=== PATIENT | male | born 1955 | race Caucasian/White ===

== ENCOUNTER 2024-10-08 16:08 | Emergency (ER) | payer BC, MEDICARE, SELFPAY ==
[2024-10-08] VITALS (12 sets, daily range): BP systolic 131–173; BP diastolic 77–102; PULSE 64–77; RESP 16; TEMP 36.4; O2SAT 95–100; BMI 26.6
--- NOTE | 2024-10-08 16:50 | DI.CT.S_ITS ---
PROCEDURE: CT ABDOMEN PELVIS W CON INDICATIONS: 5 weeks RUQ pain, worsening TECHNIQUE: After the administration of intravenous contrast, axial sections acquired from the lung bases to the pubic symphysis. Coronal and sagittal reformats were performed. For radiation dose reduction, the following was used: automated exposure control, adjustment of mA and/or kV according to patient size. COMPARISON: None. FINDINGS: Image quality: Diagnostic. Lower Chest: No significant findings. ABDOMEN: Liver: Benign 1.5 centimeters segment 7/8 cyst. Hyperattenuating lesion in segment 8 (series 2, image 30) hypoattenuating lesion with indeterminate attenuation in segment 7/6 measuring 1.3 centimeter (series 2, image 31). Gallbladder: No radiopaque gallstones or wall thickening. Biliary ducts: No biliary dilation. Pancreas: No ductal dilation. Spleen: Size is within normal limits. Adrenal Glands: No adrenal nodules. Kidneys and Ureters: No hydronephrosis. No solid mass. No complex renal cystic lesion which requires follow up. Stomach and Bowel: Normal colonic caliber, without significant wall thickening. Colonic diverticulosis without evidence of diverticulitis. Peritoneum: No abnormal intraperitoneal fluid. No free air. Ventral Wall: No significant ventral hernia. Abdominal Nodes: No retroperitoneal or mesenteric adenopathy by size criteria. Vessels: Aorta and inferior vena cava are normal in size. No aortic dissection. PELVIS: Pelvic Organs: Unremarkable. Bladder: No bladder wall thickening, accounting for underdistention. Pelvic Nodes: No enlarged lymph nodes. Miscellaneous: Small right inguinal hernia containing fat. This is indirect. Trace left direct inguinal hernia containing fat. Bones: No aggressive osseous abnormality. Degenerative disc disease of the lumbar spine. L4 hemangioma. IMPRESSION: No findings to explain the patient's right upper quadrant radiating back pain. No CT evidence of pancreatitis. Normal gallbladder. No acute aortic syndrome or nephrolithiasis. A couple of indeterminate liver lesions, probably benign hemangiomas. Recommend nonemergent MRI for complete characterization (hepatic mass protocol with Eovist). Colonic diverticulosis without evidence of diverticulitis. Dictated by: Dustin Cutler M.D. on 10/08/2024 at 18:28 Approved by: Dustin Cutler M.D. on 10/08/2024 at 18:31
[2024-10-08 16:55] LABS: Appearance Urine UA CLEAR; Bilirubin Urine UA NEGATIVE (NEGATIVE); Color Urine UA YELLOW; Glucose Urine UA NEGATIVE (Negative); Ketones Urine UA NEGATIVE (NEGATIVE); Leukocyte Esterase Urine UA NEGATIVE (NEGATIVE); Nitrite Urine UA NEGATIVE (Negative); Occult Blood Urine UA NEGATIVE (Negative); Protein Urine UA NEGATIVE (Negative); Urobilinogen Urine UA 0.2 E.U./dL (0.2)
[2024-10-08 17:04] LABS: Bacteria Urine None Seen; Culture Indicated Urine Cult Not Indicated; RBC Urine None Seen (0-5/HPF); Squamous Epithelial Cell Urine None Seen (0-5/HPF); Urine Volume 10mL (spun); WBC Urine None Seen (0-5/HPF)
[2024-10-08 17:22] LABS: Add Manual Diff / Slide Review NO; Basophils Absolute Auto 100 /uL (0-100); Basophils Percent Auto 0.7 % (0-2); Eosinophils Absolute Auto 300 /uL (0-450); Eosinophils Percent Auto 2.3 % (2-4); Hematocrit 48.1 % (41-53); Hemoglobin 16.1 g/dL (13.5-17.5); Lymphocytes Absolute Auto 3000 /uL (1100-4500); Lymphocytes Percent Auto 24.1 % (25-40); Mean Corpuscular HGB Conc 33.6 % (30-36); Mean Corpuscular Hemoglobin 29.2 PG (26-34); Monocytes Absolute Auto 1300 /uL (0-900); Neutrophils Absolute Auto 7900 /uL (1500-7000); Neutrophils Percent Auto 62.9 % (50-75); Platelet Count 248 X10^3/uL (150-400); Red Blood Cell Count 5.52 X10^6/uL (4.5-5.9); Red Cell Distribution Width 14.2 % (11.6-14.8); White Blood Cell Count 12.5 X10^3/uL (4.5-11.0)
[2024-10-08 17:24] LABS: Alanine Aminotransferase 21 IU/L (<50); Albumin Globulin Ratio 1.6 (1.0-2.8); Alkaline Phosphatase 70 U/L (38-126); Aspartate Aminotransferase 44 IU/L (17-59); Bilirubin Total 0.5 mg/dL (0.2-1.3); Blood Urea Nitrogen 21 mg/dL (9-20); Calcium 9.4 mg/dL (8.4-10.2); Carbon Dioxide 27 mmol/L (22-32); Chloride 103 mmol/L (98-107); Estimated Glomerular Filt Rate > 60 mL/min (>60); Globulin 2.5 g/dL (1.7-4.1); Glucose 100 mg/dL (70-99); HEMOLYSIS 27 (0-50); Lipase 72 U/L (23-300); Magnesium 2.1 mg/dL (1.6-2.3); Potassium 3.7 mmol/L (3.4-5.1); Sodium 137 mmol/L (137-145); Total Protein 6.5 g/dL (6.3-8.2)
--- NOTE | 2024-10-08 18:46 | ED.GENADULT ---
HPI - General Adult General Chief complaint: Abdominal Pain Stated complaint: Back Pain, Abdominal pain [id number] Time Seen by Provider: 10/08/24 16:10 Source: patient Mode of arrival: Ambulatory History of Present Illness HPI narrative: 69-year-old male complains of 5 weeks' duration of back pain somewhat right-sided, saw PCP Dr. Mendoza and was given prescriptions for tramadol, he decided not to be taking the tramadol. Still having pain. About to go on a trip to [place] in wanting further evaluation of the ongoing right-sided pain. 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 No known gallbladder problems, no prior appendectomy, no known colitis or diverticulitis changes. Related Data Allergies Allergy/AdvReac Type Severity Reaction Status Date / Time No Known Drug Allergies Allergy Verified 10/08/24 16:11 Patient History Social History Smoking Status: Never smoker Smoking Status: Never smoker Exam Narrative Exam Narrative: GENERAL: Well-developed patient, in mild distress. HEAD: Atraumatic. Normocephalic. EYES: Pupils equal round and reactive. Extraocular motions intact. No scleral icterus. No injection or drainage. ENT: Nose without bleeding, purulent drainage. Throat without erythema, tonsillar hypertrophy or exudate. Airway patent. NECK: Trachea midline. Non tender CARDIOVASCULAR: Regular rate and rhythm without murmurs, gallops, or rubs. RESPIRATORY: Clear to auscultation. Breath sounds equal bilaterally. No wheezes, rales, or rhonchi. GASTROINTESTINAL: Abdomen soft, non-tender, nondistended. EXTREMITIES: No edema or joint tenderness. BACK: Nontender without deformity or crepitance. No flank tenderness. NEURO: AOx3. Motor functions grossly nonfocal. SKIN: No rash or erythema of visible areas Initial Vital Signs Initial Vital Signs: Vital Signs Temperature 97.6 F 10/08/24 16:11 Pulse Rate 69 10/08/24 16:11 Respiratory Rate 16 10/08/24 16:11 Blood Pressure 145/84 H 10/08/24 16:11 Pulse Oximetry 97 10/08/24 16:11 Oxygen Delivery Method Room Air 10/08/24 16:11 Course Orders Ordered: Discontinued Medications Hydrocodone Bitart/Acetaminophen (Hydrocodone/Acet 5/325 Prepack) 1 bottle MISC DIRECTED ONE Stop: 10/08/24 23:10 Last Admin: 10/08/24 23:12 Dose: 1 bottle Documented By: FAMILIA Pantoprazole Sodium (Pantoprazole 40 Mg Vial) 40 mg IV NOW ONE Stop: 10/08/24 20:08 Last Admin: 10/08/24 20:26 Dose: 40 mg Documented By: FAMILIA Vital Signs Vital signs: Vital Signs - 8 hr 10/08/24 22:24 Blood Pressure 131/77 Medical Decision Making Lab Data Lab results reviewed: Yes I reviewed the patient's lab results. Lab results narrative: White blood cell count 71879, hemoglobin 16.1, platelets adequate. Glucose 100. BUN 21 creatinine 1.0 normal renal function. Normal electrolytes. Normal serum CO2. Liver functions unremarkable. Urinalysis negative. 10/08/24 16:30 10/08/24 16:30 Labs: Lab Results 10/08/24 10/08/24 Range/Units 16:30 16:44 WBC 12.5 H (4.5-11.0) X10^3/uL RBC 5.52 (4.5-5.9) X10^6/uL Hgb 16.1 (13.5-17.5) g/dL Hct 48.1 (41-53) % MCV 87.0 (80-100) fL MCH 29.2 (26-34) PG MCHC 33.6 (30-36) % RDW 14.2 (11.6-14.8) % Plt Count 248 (150-400) X10^3/uL Neut % (Auto) 62.9 (50-75) % Lymph % (Auto) 24.1 L (25-40) % [place] % (Auto) 10.0 (3-14) % Eos % (Auto) 2.3 (2-4) % Baso % (Auto) 0.7 (0-2) % Neut # (Auto) 7900 H (1590-0621) /uL Lymph # (Auto) 3000 (2403-9716) /uL [place] # (Auto) 1300 H (0-900) /uL Eos # (Auto) 300 (0-450) /uL Baso # (Auto) 100 (0-100) /uL Sodium 137 (137-145) mmol/L Potassium 3.7 (3.4-5.1) mmol/L Chloride 103 (98-107) mmol/L Carbon Dioxide 27 (22-32) mmol/L BUN 21 H (9-20) mg/dL Creatinine 1.00 (0.66-1.25) mg/dL Estimated GFR > 60 (>60) mL/min BUN/Creatinine Ratio 21.0 (6-22) Glucose 100 H (70-99) mg/dL Calcium 9.4 (8.4-10.2) mg/dL Magnesium 2.1 (1.6-2.3) mg/dL Total Bilirubin 0.5 (0.2-1.3) mg/dL AST 44 (17-59) IU/L ALT 21 (<50) IU/L Alkaline Phosphatase 70 (38-126) U/L Total Protein 6.5 (6.3-8.2) g/dL Albumin 4.0 (3.5-5.0) g/dL Globulin 2.5 (1.7-4.1) g/dL Albumin/Globulin Ratio 1.6 (1.0-2.8) Lipase 72 (23-300) U/L Urine Color Yellow Urine Appearance Clear Urine pH 6.0 (4.5-8.0) Ur Specific [place] 1.010 (1.000-1.035) Urine Protein Negative (Negative) Urine Glucose (UA) Negative (Negative) g/dL Urine Ketones Negative (NEGATIVE) Urine Occult Blood Negative (Negative) Urine Nitrate Negative (Negative) Urine Bilirubin Negative (NEGATIVE) Urine Urobilinogen 0.2 (0.2) E.U./dL Ur Leukocyte Esterase Negative (NEGATIVE) Urine RBC None seen (0-5/HPF) Urine WBC None seen (0-5/HPF) Ur Squamous Epith Cells None seen (0-5/HPF) Urine Bacteria None seen (None) Ur Culture Indicated? Cult not indicated Vol Urine Centrifuged 10ml (spun) Imaging Data Right upper quadrant abdominal ultrasound: Radiologist's Impression: [address] [address] Ultrasound Report Signed Patient: Barry Fulton MR#: [id number] : 1955 Acct:[id number] Age/Sex: 69 / M Date of Service: 10/08/24 Loc: ED Accession Number: [id number] Procedure: US abdomen limited Ordering Provider: Ariel Rosario MD PROCEDURE: US ABDOMEN LIMITED INDICATIONS: PAIN TECHNIQUE: Real-time scanning was performed of the abdominal and retroperitoneal organs, with image documentation. COMPARISON: [facility], CT, CT ABDOMEN PELVIS W CON, 10/08/2024, 17:59. FINDINGS: Liver: Simple cyst in the right lobe measuring 1.3 cm. Focus of increased echogenicity within the right lobe measuring 1.2 x 1.6 x 1.7 cm suspicious for hemangioma. Gallbladder: No gallstones. No wall thickening. No pericholecystic edema. Negative sonographic Hinkle's sign. Biliary ducts: Intrahepatic bile ducts are non-dilated. Extrahepatic bile duct caliber measures 3.2 mm. Normal is 6-7 mm or less in diameter, or 10 mm or less post-cholecystectomy. Pancreas: Visualized portions of the pancreas are sonographically normal. Miscellaneous: No free abdominal fluid. Multiple superior right renal cysts. IMPRESSION: Hepatic and renal cysts. Focus of increased echogenicity within the liver likely hemangioma. Dictated by: Shannon Ferguson M.D. on 10/08/2024 at 21:56 Approved by: Shannon Ferguson M.D. on 10/08/2024 at 21:58 CT scan - abdomen/pelvis: Radiologist's Impression: Close Abdomen Ultrasound (Signed) Shannon Ferguson - 10/08/24 Abdomen/Pelvis CT (Signed) Dustin Cutler - 10/08/24 Launch?[place] [address] CT Scan Report Signed Patient: Barry Fulton MR#: [id number] : 1955 Acct:[id number] Age/Sex: 69 / M Date of Service: 10/08/24 Loc: ED Accession Number: [id number] Procedure: CT abdomen pelvis w con Ordering Provider: Alisha Albarran MD PROCEDURE: CT ABDOMEN PELVIS W CON INDICATIONS: 5 weeks RUQ pain, worsening TECHNIQUE: After the administration of intravenous contrast, axial sections acquired from the lung bases to the pubic symphysis. Coronal and sagittal reformats were performed. For radiation dose reduction, the following was used: automated exposure control, adjustment of mA and/or kV according to patient size. COMPARISON: None. FINDINGS: Image quality: Diagnostic. Lower Chest: No significant findings. ABDOMEN: Liver: Benign 1.5 centimeters segment 7/8 cyst. Hyperattenuating lesion in segment 8 (series 2, image 30) hypoattenuating lesion with indeterminate attenuation in segment 7/6 measuring 1.3 centimeter (series 2, image 31). Gallbladder: No radiopaque gallstones or wall thickening. Biliary ducts: No biliary dilation. Pancreas: No ductal dilation. Spleen: Size is within normal limits. Adrenal Glands: No adrenal nodules. Kidneys and Ureters: No hydronephrosis. No solid mass. No complex renal cystic lesion which requires follow up. Stomach and Bowel: Normal colonic caliber, without significant wall thickening. Colonic diverticulosis without evidence of diverticulitis. Peritoneum: No abnormal intraperitoneal fluid. No free air. Ventral Wall: No significant ventral hernia. Abdominal Nodes: No retroperitoneal or mesenteric adenopathy by size criteria. Vessels: Aorta and inferior vena cava are normal in size. No aortic dissection. PELVIS: Pelvic Organs: Unremarkable. Bladder: No bladder wall thickening, accounting for underdistention. Pelvic Nodes: No enlarged lymph nodes. Miscellaneous: Small right inguinal hernia containing fat. This is indirect. Trace left direct inguinal hernia containing fat. Bones: No aggressive osseous abnormality. Degenerative disc disease of the lumbar spine. L4 hemangioma. IMPRESSION: No findings to explain the patient's right upper quadrant radiating back pain. No CT evidence of pancreatitis. Normal gallbladder. No acute aortic syndrome or nephrolithiasis. A couple of indeterminate liver lesions, probably benign hemangiomas. Recommend nonemergent MRI for complete characterization (hepatic mass protocol with Eovist). Colonic diverticulosis without evidence of diverticulitis. Dictated by: Dustin Cutler M.D. on 10/08/2024 at 18:28 Approved by: Dustin Cutler M.D. on 10/08/2024 at 18:31 [facility] Narrative Medical decision making narrative: 69-year-old male with right-sided flank pain without obvious trauma, not responsive to intensive care anaesthetist, about to have trip to [place], seeking further evaluation before vacation travel. Afebrile, sirs screen negative. No tenderness transabdominally. Screening labs sent. CT abdomen and pelvis. IMPRESSION: No findings to explain the patient's right upper quadrant radiating back pain. No CT evidence of pancreatitis. Normal gallbladder. No acute aortic syndrome or nephrolithiasis.A couple of indeterminate liver lesions, probably benign hemangiomas. Recommend nonemergent MRI for complete characterization (hepatic mass protocol with Eovist). Colonic diverticulosis without evidence of diverticulitis. See radiology report. Right upper quadrant abdominal ultrasound. IMPRESSION: Hepatic and renal cysts. Focus of increased echogenicity within the liver likely hemangioma. See radiology report. Copy of the reports given to patient, with discussion of hemangioma and cyst changes, that likely seem incidental, likely not cause of his right flank right upper quadrant abdominal discomfort. He has tramadol from his primary care doctor to try if needed. We will give a home pack of hydrocodone to use if needed, as he is going on trip to [place]. Consider MRI of the spine in follow up if symptoms seemed to be persisting. Consider muscle relaxant, he has an old supply of cyclobenzaprine that he will consider bringing on his trip, declines any new muscle relaxant prescription. He would like to go home, discharged home with family. Advised to follow up with his regular provider after return from [place]. While in [place] advised to go to nearest emergency department for any change worsening symptoms or any concerns prior. Discharge Plan Departure Patient Disposition: Home Clinical Impression: Right flank pain, Right sided abdominal pain, Hemangioma of liver, Liver cyst, Renal cyst Activity Restrictions/Additional Instructions: Ongoing weeks' duration of right-sided back flank abdominal discomfort of unclear cause. Prescription for tramadol provided from your regular provider. No response to reported chiropractic treatments. Possible MRI of the spine to be done at some later date. Afebrile on triage. Without significant tenderness, no rash or other findings on examination of concern. CT abdomen and pelvis imaging showed no definite cause for these painful symptoms. CT did show hemangioma of the liver but not obviously bleeding or thrombosed, incidental cysts of the liver and kidney also non hemorrhagic or not particularly large and side, likely all these are incidental findings, no obvious imaging explanation for your symptoms. Further imaging right upper quadrant ultrasound of the gallbladder done, no gallstones confirmed, no acute cholecystitis gallbladder inflammation, liver cysts mentioned, possible hemangioma change again mentioned. Consider taking [id number] omeprazole or other antacid in case you might have duodenal ulcer not seen on above studies, if that might be the cause of your discomfort. It might be prudent to avoid ibuprofen or naproxen that might inflamed that area if it ends up being confirmed to be the cause of your discomfort. Consider use of your tramadol prescribed by your primary care doctor. Consider use of your cyclobenzaprine muscle relaxant to use if needed. We did dispensed home pack of hydrocodone/acetaminophen higher potency opiate, to use during your [place] trip if it were needed. Consider follow up with your regular doctor on return from [place] trip, MRI of the spine might be indicated if this is an ongoing problem for you otherwise unexplained. At any time during your travels or upon return, return to the nearest emergency department for any change worsening symptoms or any concerns prior. Stand Alone Forms: Patient Portal/API
--- NOTE | 2024-10-08 20:06 | DI.US.S_ITS ---
PROCEDURE: US ABDOMEN LIMITED INDICATIONS: PAIN TECHNIQUE: Real-time scanning was performed of the abdominal and retroperitoneal organs, with image documentation. COMPARISON: [facility], CT, CT ABDOMEN PELVIS W CON, 10/08/2024, 17:59. FINDINGS: Liver: Simple cyst in the right lobe measuring 1.3 cm. Focus of increased echogenicity within the right lobe measuring 1.2 x 1.6 x 1.7 cm suspicious for hemangioma. Gallbladder: No gallstones. No wall thickening. No pericholecystic edema. Negative sonographic Hinkle's sign. Biliary ducts: Intrahepatic bile ducts are non-dilated. Extrahepatic bile duct caliber measures 3.2 mm. Normal is 6-7 mm or less in diameter, or 10 mm or less post-cholecystectomy. Pancreas: Visualized portions of the pancreas are sonographically normal. Miscellaneous: No free abdominal fluid. Multiple superior right renal cysts. IMPRESSION: Hepatic and renal cysts. Focus of increased echogenicity within the liver likely hemangioma. Dictated by: Shannon Ferguson M.D. on 10/08/2024 at 21:56 Approved by: Shannon Ferguson M.D. on 10/08/2024 at 21:58
[2024-10-08] MEDS: PANTOPRAZOLE 40 MG VIAL IV (20:26)
[2024-10-08] MEDS: HYDROCODONE/ACET 5/325 PREPACK 1 BOTTLE MISC (23:12)
== END 2024-10-08 23:15 | disposition home or self-care (01) ==
PROVIDERS: Emergency Medicine; Emergency Provider Emergency Medicine
DX: R10.9 Unspecified abdominal pain (principal); M54.89 Other dorsalgia; D18.03 Hemangioma of intra-abdominal structures; K76.89 Other specified diseases of liver; N28.1 Cyst of kidney, acquired
CPT/HCPCS: 36415; 74177; 76705; 80053; 81001; 83690; 83735; 85025; 96374; 99284; J2470; Q9967